=== PATIENT | female | born 1995 | race Caucasian/White ===

== ENCOUNTER 2022-08-21 16:33 | Emergency (ER) | payer OTHER, SELFPAY ==
[2022-08-21 16:34] VITALS: BP 145/81; PULSE 94; RESP 17; TEMP 37.1; O2SAT 97; BMI 36.6
[2022-08-21 16:50] VITALS: BP 145/81; PULSE 94; RESP 17; TEMP 37.1; O2SAT 97; BMI 36.6
--- NOTE | 2022-08-21 16:55 | XR_ITS ---
PROCEDURE INFORMATION: Exam: XR Chest Exam date and time: 08/21/2022 4:52 PM Age: 27 years old Clinical indication: Cough TECHNIQUE: Imaging protocol: Radiologic exam of the chest. Views: 2 views. COMPARISON: No relevant prior studies available. FINDINGS: Lungs: Flattening of the hemidiaphragms suggesting hyperinflation. Lungs are otherwise clear. Pleural spaces: Unremarkable. No pleural effusion. No pneumothorax. Heart/Mediastinum: Unremarkable. No cardiomegaly. Bones/joints: Unremarkable. IMPRESSION: Hyperinflation. No acute disease.
--- NOTE | 2022-08-21 17:03 | EXP.UTC ---
Discharge Plan Disposition Patient Disposition: Home, Self-Care Condition: Good Prescriptions Prescriptions: New benzonatate [benzonatate] 100 mg capsule 100 mg PO TIDP PRN (Reason: Cough) Qty: 30 0RF methylprednisolone 4 mg Tablets,Dose Pack 4 mg PO DIRECTED Qty: 21 0RF azithromycin [Zithromax] 250 mg tablet 250 mg PO UD DOSE PK Qty: 6 0RF Rx Instructions: Take two (2) tablets today, then one (1) tablet days #2 thru #5 No Action Vraylar 1.5 mg capsule 1.5 mg PO DAILY Qty: 30 1RF omeprazole 40 mg Capsule,Delayed Release(Dr/Ec) 40 mg PO DAILY fluticasone propion-salmeterol [Advair Diskus] 100-50 mcg/dose blister with device 1 inh inhalation BID albuterol sulfate [Ventolin HFA] 90 mcg/actuation HFA aerosol inhaler See Rx Instructions .ROUTE .COMPLEX Rx Instructions: INHALE 2 PUFFS BY MOUTH EVERY 4-6 HOURS NEEDED FOR SHORTNESS OF BREATH OR WHEEZING Referrals Follow up/Referrals: Dereje Finley MD [Primary Care Provider] - See instructions Activity Restrictions/Add. Instructions Additional Instructions/Restrictions: Drink plenty of fluids. Take tylenol or ibuprofen for pain or fever. Take the medications as directed. Follow up with your regular doctor. GO TO THE ER FOR ANY WORSENING SYMPTOMS Clinical Impressions Clinical Impression: Asthma exacerbation, Sinusitis Discharge ED Provider: Shabbir Jeffries [facility] General Stated complaint: cough Mode of Arrival: Ambulatory Source of Information: Patient Limitations: No Limitations Time Seen by Provider: 08/21/22 17:03 Description of Symptoms (Recalled from Triage Doc. by RN): PATIENT C/O INTERMITTEN PRODUCTIVE COUGH WITH CLOUDY, YELLOW/GREEN SPUTUM SINCE JUNE. SHE ALSO C/O TENDERNESS TO CHEST, MAINLY TO RIGHT SIDE. SHE REPORTS A HISTORY OF ASTHMA AND PNEUMONIA HEENT Symptoms (Recalled from RN notes): No Resp Symptoms (Recalled from RN notes): Yes Skin Symptoms (Recalled from RN notes): No MS Symptoms (Recalled from RN notes): No Functional Status (Recalled from RN notes): WNL History of Present Illness Provider Complaint: She states that she has had chest congestion over the past 3 months. She does have a history of asthma. She is not out of her albuterol inhaler or her advair. Related Data Home Medications Medication Instructions Recorded Confirmed albuterol sulfate 90 mcg/actuation See Rx Instructions .Route 08/21/22 08/21/22 aerosol inhaler (Ventolin HFA) .COMPLEX Asthma fluticasone 100 mcg-salmeterol 50 1 inh inhalation BID Asthma 08/21/22 08/21/22 mcg/dose blistr powdr for inhalation (Advair Diskus) omeprazole 40 mg capsule,delayed 40 mg PO DAILY Acid reflux 08/21/22 08/21/22 release Previous Rx's Medication Instructions Recorded cariprazine 1.5 mg capsule 1.5 mg PO DAILY #30 caps 01/16/22 (Vraylar) azithromycin 250 mg tablet 250 mg PO UD DOSE PK #6 tabs 08/21/22 (Zithromax) benzonatate 100 mg capsule 100 mg PO TIDP PRN Cough #30 caps 08/21/22 methylprednisolone 4 mg tablets in 4 mg PO DIRECTED #21 tabs 08/21/22 a dose pack Allergies Allergy/AdvReac Type Severity Reaction Status Date / Time No Known Allergies Allergy Verified 01/16/22 13:13 Worker's Comp Is this a Worker's Comp case?: No [facility] Disclaimer: The information contained in this section may have been updated after the patient was seen, as this information can be updated by other users. Social History Smoking Status: Current every day smoker alcohol intake: current current occupational status: unemployed Travel in the last 8 weeks: None ROS Obtained: Yes All systems reviewed & no additional complaints except as documented Constitutional Constitutional: Reports poor appetite Eyes Eyes: Reports system reviewed and no additional complaints, except as documented ENT Ears, Nose, Mouth, and Throat: Reports as per HPI C
[2022-08-21 17:25] VITALS: BP 145/81; PULSE 94; RESP 17; TEMP 37.1; O2SAT 97
== END 2022-08-21 17:27 | disposition home or self-care (01) ==
PROVIDERS: Emergency Provider Nurse Practitioner Family; PCP Emergency Medicine
DX: J45.901 Unspecified asthma with (acute) exacerbation (principal); J01.90 Acute sinusitis, unspecified; F17.200 Nicotine dependence, unspecified, uncomplicated
CPT/HCPCS: 71046; 99204; 99212; G0463

== ENCOUNTER 2022-11-20 00:44 | Emergency (ER) | payer OTHER, SELFPAY ==
[2022-11-20 00:54] VITALS: BP 167/94; PULSE 108; RESP 19; TEMP 37.4; O2SAT 97; BMI 36.6
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
[2022-11-20 01:45] VITALS: BP 139/100; PULSE 83; RESP 16; TEMP 37.2; O2SAT 95
== END 2022-11-20 01:46 | disposition home or self-care (01) ==
PROVIDERS: Emergency Provider Emergency Medicine; PCP Emergency Medicine
DX: H66.91 Otitis media, unspecified, right ear (principal); K64.9 Unspecified hemorrhoids; I10 Essential (primary) hypertension; F60.3 Borderline personality disorder; F31.9 Bipolar disorder, unspecified; J45.909 Unspecified asthma, uncomplicated; F41.9 Anxiety disorder, unspecified; G47.30 Sleep apnea, unspecified; R01.1 Cardiac murmur, unspecified; F17.200 Nicotine dependence, unspecified, uncomplicated
CPT/HCPCS: 99283

== ENCOUNTER 2022-11-24 18:00 | Emergency (ER) | payer OTHER, SELFPAY ==
--- NOTE | 2022-11-24 17:56 | ECG_ITS ---
APPROVED REPORT Exam: Resting ECG HR:100 bpm ECG Measurements Heart Rate 100 AXES NM 151 P 74 QRSd 107 QRS -53 QT 331 T 56 QTc 388 Conclusion SINUS TACHYCARDIA LEFT AXIS DEVIATION [QRS AXIS < -30] ABNORMAL ECG UNCONFIRMED REPORT Electronically signed by : Vipul Padron MD 11/26/2022 06:50:31
[2022-11-24 18:00] VITALS: BP 153/94; PULSE 105; RESP 18; TEMP 36.9; O2SAT 100; BMI 35.5
--- NOTE | 2022-11-24 18:13 | PC.NURSE ---
Dr. Barker at [facility] for pt eval
--- NOTE | 2022-11-24 18:18 | XR_ITS ---
PROCEDURE INFORMATION: Exam: XR Chest Exam date and time: 11/24/2022 6:27 PM Age: 27 years old Clinical indication: Shortness of breath; Additional info: Tachycardia, SOA TECHNIQUE: Imaging protocol: Radiologic exam of the chest. Views: 1 view. COMPARISON: CR XR CHEST 2V 08/21/2022 4:52 PM FINDINGS: Lungs: Unremarkable. No consolidation. Pleural spaces: Unremarkable. No pleural effusion. No pneumothorax. Heart/Mediastinum: Unremarkable. No cardiomegaly. Bones/joints: Unremarkable. IMPRESSION: No acute findings.
--- NOTE | 2022-11-24 18:22 | HMH.EDGENADL ---
Discharge Plan Disposition Patient Disposition: Home, Self-Care Chief Complaint: Anxiety Prescriptions Prescriptions: No Action Vraylar 1.5 mg capsule 1.5 mg PO DAILY Qty: 30 1RF omeprazole 40 mg Capsule,Delayed Release(Dr/Ec) 40 mg PO DAILY fluticasone propion-salmeterol [Advair Diskus] 100-50 mcg/dose blister with device 1 inh inhalation BID albuterol sulfate [Ventolin HFA] 90 mcg/actuation HFA aerosol inhaler See Rx Instructions .ROUTE .COMPLEX Rx Instructions: INHALE 2 PUFFS BY MOUTH EVERY 4-6 HOURS NEEDED FOR SHORTNESS OF BREATH OR WHEEZING benzonatate [benzonatate] 100 mg capsule 100 mg PO TIDP PRN (Reason: Cough) Qty: 30 0RF methylprednisolone 4 mg Tablets,Dose Pack 4 mg PO DIRECTED Qty: 21 0RF azithromycin [Zithromax] 250 mg tablet 250 mg PO UD DOSE PK Qty: 6 0RF Rx Instructions: Take two (2) tablets today, then one (1) tablet days #2 thru #5 amoxicillin-pot clavulanate 875-125 mg tablet 1 tab PO BID Qty: 20 0RF Referrals Follow up/Referrals: Provider,Referral, MD [Referring] - See instructions Activity Restrictions/Add. Instructions Additional Instructions/Restrictions: Call your family doctor to establish care for this visit to the emergency department and schedule follow-up within 48 hours to ensure improvement. If you have any worsening of your condition or any other concerning signs or symptoms, return to the emergency department or your primary care doctor for further evaluation. Be sure this call and schedule appointment that works in your schedule for psychiatry evaluation with mirna Hernandez as well. Clinical Impressions Clinical Impression: Panic attack as reaction to stress Discharge ED Provider: Prasanna Barker General Adult HPI General Chief complaint: Anxiety Stated complaint: chest pain Time Seen by Provider: 11/24/22 18:01 Mode of Arrival: Ambulatory Source of Information: Patient Limitations: No Limitations Description of Symptoms (Recalled from ER Triage Doc. by RN): Patient reports having a panic attack. States she woke up around 5pm with chest pain because she was having a panic attack. Patient explained to this nurse that her cousin yesterday and today is around the anniversary date of her dads and she feels it is just all adding up. History of Present Illness HPI narrative: Is a 27-year-old female with history of bipolar disorder, anxiety, panic, hemorrhoids not currently taking medications presenting with panic attack. Patient states that she had a close family member commit suicide 1 day prior to arrival on 11/23 by hanging. Since that time, patient had nightmares, woke up about an hour prior to arrival with tachycardia, breathing quickly, nausea and a feeling of panic. Denies chest pain, shortness of breath, abdominal pain, neurologic deficits, syncope, or any other concerns. On arrival to the emergency department, patient feeling much better, denies any of the symptoms, but is still panicked and sad. Denies SI/HI. Related Data Home Medications Medication Instructions Recorded Confirmed albuterol sulfate 90 mcg/actuation See Rx Instructions .Route 08/21/22 08/21/22 aerosol inhaler (Ventolin HFA) .COMPLEX Asthma fluticasone 100 mcg-salmeterol 50 1 inh inhalation BID Asthma 08/21/22 08/21/22 mcg/dose blistr powdr for inhalation (Advair Diskus) omeprazole 40 mg capsule,delayed 40 mg PO DAILY Acid reflux 08/21/22 08/21/22 release Previous Rx's Medication Instructions Recorded cariprazine 1.5 mg capsule 1.5 mg PO DAILY #30 caps 01/16/22 (Vraylar) azithromycin 250 mg tablet 250 mg PO UD DOSE PK #6 tabs 08/21/22 (Zithromax) benzonatate 100 mg capsule 100 mg PO TIDP PRN Cough #30 caps 08/21/22 methylprednisolone 4 mg tablets in 4 mg PO DIRECTED #21 tabs 08/21/22 a dose pack amoxicillin 875 mg-potassium 1 tab PO BID #20 tabs 11/20/22 clavulanate 125 mg tablet Allergies Allergy/AdvReac
[2022-11-24 18:31] VITALS: BP 126/87; PULSE 78; O2SAT 98
[2022-11-24 18:38] LABS: Anion Gap 14.8 mEq/L (5-15); Blood Urea Nitrogen 8 mg/dl (7-17); Calcium 9.3 mg/dl (8.4-10.2); Carbon Dioxide 25 mmol/L (22.0-30.0); Chloride 105 mmol/L (98-107); Creatinine Clearance Estimated 119 mL/min (50-200); Estimated Glomerular Filt Rate 59 ml/min (>60); GFR (African American) 71 ML/MIN (>60); Glucose 112 mg/dl (74-100); Potassium 3.8 mmoL/L (3.5-5.1); Sodium 141 mmol/L (136-145)
[2022-11-24 18:41] LABS: Basophils % 0.2 % (0.1-2.0); Eosinophils # 0.6 K/mm3 (0.0-0.4); Eosinophils % 6.1 % (0.1-12.0); Hematocrit 41.1 % (37.0-47.0); Hemoglobin 13.5 g/dL (12.2-16.2); Lymphocytes # 3.1 K/mm3 (0.7-4.5); Lymphocytes % 32.5 % (10-50); Mean Corpuscular HGB Conc 32.7 g/dL (31.8-35.4); Mean Corpuscular Hemoglobin 31.3 pg (27.0-31.2); Mean Corpuscular Volume 95.7 fl (81-99); Mean Platelet Volume 8.9 fl (7.4-10.4); Monocytes # 0.3 K/mm3 (0.1-1.0); Monocytes % 3.4 % (1.7-9.3); Neutrophils # 5.6 K/mm3 (1.8-7.8); Neutrophils % 57.8 % (37.0-80.0); Platelet Count 245 K/mm3 (142-424); White Blood Count 9.7 K/mm3 (4.8-10.8)
[2022-11-24 18:47] LABS: D-Dimer 0.54 ug/mL (0.0-0.5)
[2022-11-24 18:56] LABS: T4 (Thyroxine) 10.6 ug/dl (5.53-11.0)
[2022-11-24 19:02] VITALS: BP 116/61; PULSE 65; O2SAT 99
[2022-11-24 19:09] LABS: Thyroid Stimulating Hormone 2.27 uIU/mL (0.465-4.68)
[2022-11-24 20:27] VITALS: BP 114/75; PULSE 67; RESP 16; TEMP 36.9; O2SAT 99
== END 2022-11-24 20:28 | disposition home or self-care (01) ==
PROVIDERS: Emergency Provider Emergency Medicine; PCP Nurse Practitioner Family
DX: R07.9 Chest pain, unspecified (principal); F41.0 Panic disorder [episodic paroxysmal anxiety]; F31.9 Bipolar disorder, unspecified; F60.3 Borderline personality disorder; G47.30 Sleep apnea, unspecified; F17.200 Nicotine dependence, unspecified, uncomplicated
CPT/HCPCS: 71045; 80048; 84436; 84443; 85025; 85378; 93005; 96360; 99285

== ENCOUNTER → 2022-12-02 13:25 | Outpatient (CLI) | payer OTHER, SELFPAY ==
[2022-12-02 13:41] LABS: Basophils % 0.4 % (0.1-2.0); Eosinophils # 0.8 K/mm3 (0.0-0.4); Hematocrit 42.7 % (37.0-47.0); Hemoglobin 13.8 g/dL (12.2-16.2); Lymphocytes # 2.3 K/mm3 (0.7-4.5); Lymphocytes % 27.7 % (10-50); Mean Corpuscular HGB Conc 32.3 g/dL (31.8-35.4); Mean Corpuscular Hemoglobin 31.4 pg (27.0-31.2); Mean Corpuscular Volume 97.1 fl (81-99); Mean Platelet Volume 8.8 fl (7.4-10.4); Monocytes # 0.4 K/mm3 (0.1-1.0); Monocytes % 4.2 % (1.7-9.3); Neutrophils # 4.9 K/mm3 (1.8-7.8); Neutrophils % 58.8 % (37.0-80.0); Platelet Count 259 K/mm3 (142-424); Red Cell Distribution Width 13.1 % (11.5-17.5); White Blood Count 8.3 K/mm3 (4.8-10.8)
== END ==
PROVIDERS: PCP Internal Medicine Adolescent Medicine; Visit Provider Surgery
DX: K64.9 Unspecified hemorrhoids (principal)
CPT/HCPCS: 36415; 85025

== ENCOUNTER 2023-01-18 10:37 | Emergency (ER) | payer OTHER, SELFPAY ==
[2023-01-18 10:47] VITALS: BP 144/98; PULSE 88; RESP 15; TEMP 36.7; O2SAT 99; BMI 38.7
[2023-01-18 10:51] VITALS: BP 130/82
--- NOTE | 2023-01-18 11:11 | HMH.EDGENADL ---
Discharge Plan Disposition Patient Disposition: Home, Self-Care Prescriptions Prescriptions: New cetirizine 10 mg tablet 10 mg PO DAILY 30 Days Qty: 30 3RF Referrals Follow up/Referrals: Jaye Sargent APRN [Primary Care Provider] - See instructions Activity Restrictions/Add. Instructions Additional Instructions/Restrictions: History of hives or an urticarial rash which is since resolved suggest this is most likely allergic in nature. Please take cetirizine as prescribed return with any worsening of your symptoms and difficulty breathing swelling in your mouth or neck or any other concerns. I suggest you get allergy tested as well. Please follow-up the primary care doctor in 1 to 2 weeks. Clinical Impressions Clinical Impression: Urticaria Instructions Patient Instructions: DI for Skin Abscess Discharge ED Provider: Israel Champion General Adult HPI General Chief complaint: Skin/Abscess/Foreign Body Stated complaint: rash on body Time Seen by Provider: 01/18/23 10:54 Mode of Arrival: Ambulatory Source of Information: Patient Limitations: No Limitations Description of Symptoms (Recalled from ER Triage Doc. by RN): 27 yo F presents to ED with c/o hives ongoing since last wednesday. pt reports she was in longterm, then began to develop the hives. pt reports itching and burning. History of Present Illness HPI narrative: Patient is a 27-year-old female presenting with hives that presented last week that have since significantly improved. States they have been pruritic neuromas completely resolved at this point. She states she has known allergies to multiple substances and had allergy testing when she was a kid. Denies any shortness of breath any wheezing any bug bites that she is aware of etc. She is currently only having very mild symptoms. Related Data Previous Rx's Medication Instructions Recorded cetirizine 10 mg tablet 10 mg PO DAILY 30 days #30 tabs 01/18/23 Allergies Allergy/AdvReac Type Severity Reaction Status Date / Time No Known Allergies Allergy Verified 01/14/23 11:05 [facility] Disclaimer: The information contained in this section may have been updated after the patient was seen, as this information can be updated by other users. Medical History (Updated 01/18/23 @ 11:08 by Israel Champion MD) Abdominal wall dehiscence Borderline personality disorder Murmur Sleep apnea Surgical History History of History of laparoscopic cholecystectomy History of tubal ligation Social History Smoking Status: Current every day smoker alcohol intake: current current occupational status: unemployed Travel in the last 8 weeks: None ROS Obtained: Yes All systems reviewed & no additional complaints except as documented Physical Exam General General appearance: alert Respiratory Respiratory exam: Present normal lung sounds bilaterally Cardiovascular Cardiovascular exam: Present regular rate; Absent tachycardia Neurological Exam Neurological exam: Present alert and oriented X3 Skin Skin exam: Present other (Faint evidence of diffuse urticarial rash on her abdomen back lower legs no evidence of any wheezing or any other organ system involvement from a physical exam standpoint) Medical Decision Making Geovany Inquiry Pt receiving controlled substance: No Vital Signs: 01/18/23 10:47 01/18/23 10:51 Temperature 98.1 F Temperature Source Oral Pulse Rate [Left Radial] 88 Respiratory Rate 15 Blood Pressure 130/82 Blood Pressure [Right Arm] 144/98 H Blood Pressure Mean [Right Arm] 113 02 Sat by Pulse Oximetry 99 Oxygen Delivery Method Room Air Medical Decision Narrative: Very well-appearing 27-year-old female with significant improvement in what historically she claims were urticarial rashes she did have some pictures of these which seem consistent. S
[2023-01-18 11:15] VITALS: BP 144/98; PULSE 88; RESP 16; TEMP 36.7
== END 2023-01-18 11:15 | disposition home or self-care (01) ==
PROVIDERS: Emergency Provider Student in an Organized Health Care Education/Training Program; PCP Nurse Practitioner Family
DX: L50.9 Urticaria, unspecified (principal); F17.210 Nicotine dependence, cigarettes, uncomplicated; F41.9 Anxiety disorder, unspecified
CPT/HCPCS: 99282

== ENCOUNTER 2023-02-08 13:28 | Emergency (ER) | payer OTHER, SELFPAY ==
[2023-02-08 14:30] VITALS: BP 120/81; PULSE 85; RESP 17; TEMP 36.9; O2SAT 99; BMI 37.5
--- NOTE | 2023-02-08 14:37 | EXP.UTC ---
Discharge Plan Disposition Patient Disposition: Home, Self-Care Condition: Good Prescriptions Prescriptions: New methylprednisolone [Medrol (Antonio)] 4 mg tablets,dose pack See Rx Instructions .Route .COMPLEX 6 Days Qty: 21 0RF Rx Instructions: taper pack; amoxicillin-pot clavulanate 875-125 mg Tablet 1 tab PO Q12H Qty: 20 0RF guaifenesin [Mucinex] 600 mg tablet extended release 12hr 1,200 mg PO BID PRN (Reason: cough) Qty: 20 0RF No Action peg 3350-electrolytes [GaviLyte-G] 236-22.74-6.74 -5.86 gram recon soln 240 ml PO Q10M Qty: 4000 0RF Rx Instructions: until fecal effluent is clear-- follow mailed instructions cetirizine 10 mg tablet 10 mg PO DAILY 30 Days Qty: 30 3RF Referrals Follow up/Referrals: Jaye Sargent APRN [Primary Care Provider] - See instructions Activity Restrictions/Add. Instructions Additional Instructions/Restrictions: *Monitor Temp, Over the counter Motrin or Tylenol as directed/as needed Tylenol every 4 hours and Motrin every 6 hours (as long as your family doctor has told you that you can take it) for fever or pain. and straight to ER if unable to lower temp less than 101.0 after medication given *Warm salt water gargles may help to soothe the throat *Throat Lozenges? *Warm fluids like tea with honey may help to soothe the throat? *Sleep elevated *Humidifier/Vaporizer Your throat swab was sent for culture. Those results are typically sent to your primary care. Be sure to follow up in 2-3 days with your family doctor/primary care physician if no improvement so they can review those result and treat if necessary. If you don?t have a primary care doctor, I recommend you get one but in the mean time, you will have to return to a walk in clinic Follow up IMMEDIATELY for new or worsening symptoms or no Noticeable improvement over the next 48-72 hours. 911 for difficulty breathing or swallowing Clinical Impressions Clinical Impression: Sinusitis Qualifiers: Sinusitis location: unspecified location Chronicity: unspecified Qualified Code(s): J32.9 - Chronic sinusitis, unspecified Instructions Patient Instructions: Sinusitis, DI for Sinusitis Discharge ED Provider: Annetta Barahona [facility] [place] General Stated complaint: COUGH, SORE THROAT, CHILLS Time Seen by Provider: 02/08/23 14:37 History of Present Illness Provider Complaint: Patient states that she has been having cough, sore throat sinus congestion and pressure with drainage in the back of her throat and at times she is coughing up some mucous States that today she was feeling worse so she came in to get checked Related Data Previous Rx's Medication Instructions Recorded cetirizine 10 mg tablet 10 mg PO DAILY 30 days #30 tabs 01/18/23 peg 3350-electrolytes 236 240 ml PO Q10M #4,000 mL 02/02/23 gram-22.74 gram-6.74 gram-5.86 gram solution (GaviLyte-G) amoxicillin 875 mg-potassium 1 tab PO Q12H #20 tabs 02/08/23 clavulanate 125 mg tablet guaifenesin 600 mg tablet, 1,200 mg PO BID PRN cough #20 tabs 02/08/23 extended release 12 hr (Mucinex) methylprednisolone 4 mg tablets in See Rx Instructions .Route 02/08/23 a dose pack (Medrol (Antonio)) .COMPLEX 6 days #21 tabs Allergies Allergy/AdvReac Type Severity Reaction Status Date / Time No Known Allergies Allergy Verified 01/14/23 11:05 [facility] Disclaimer: The information contained in this section may have been updated after the patient was seen, as this information can be updated by other users. Medical History (Updated 02/08/23 @ 14:40 by Annetta Barahona, LAYO) Abdominal wall dehiscence Borderline personality disorder Murmur Sleep apnea Surgical History History of History of laparoscopic cholecystectomy History of tubal ligation Social History Smoking Status: [place]
[2023-02-08 14:42] VITALS: BP 120/81; PULSE 85; RESP 17; TEMP 36.9; O2SAT 99
[2023-02-08 14:50] LABS: UTC Influenza A Antigen Negative (Negative); UTC Influenza B Antigen Negative (Negative); UTC Strep Screen (Rapid) Negative (Negative)
== END 2023-02-08 15:33 | disposition home or self-care (01) ==
PROVIDERS: Emergency Provider Nurse Practitioner; PCP Nurse Practitioner Family
DX: J01.90 Acute sinusitis, unspecified (principal); F17.210 Nicotine dependence, cigarettes, uncomplicated
CPT/HCPCS: 87804; 87880; 99212; 99214; G0463

== ENCOUNTER 2023-03-11 11:35 | Day surgery (SDC) | payer OTHER, SELFPAY ==
[2023-03-11] VITALS (7 sets, daily range): BP systolic 96–123; BP diastolic 47–80; PULSE 78–89; RESP 16–19; TEMP 36.5–37.1; O2SAT 98–100; BMI 38.7
[2023-03-11 12:19] LABS: Urine Pregnancy, HCG Qual. Negative (Negative)
--- NOTE | 2023-03-11 13:13 | HMH.SCOPE ---
Procedure: Date: 03/11/23 Patient Date of :: 1995 Procedure Performed:: EGD & biopsies Indications:: GERD, Abdominal pain Performing Provider:: Janki Abrams MD Referring Provider:: Maday Abrams APRN Sedation:: Propofol Procedure:: The gastroscope was gently passed through the incisoral orifice into the oral cavity and under direct visualization the esophagus was intubated. The endoscope was passed down the esophagus, through the stomach, and into the duodenum. Color, texture, mucosa, and anatomy of the esophagus, stomach, and duodenum were carefully examined with the scope. Findings:: Oropharynx: normal Esophagus: normal EG Junction: intact at 40 cm Cardia: normal Fundus: normal Body: normal, random biopsies obtained Antrum: normal Duodenal bulb: normal Duodenum (second and third portion): normal Impression: Normal EGD, random biopsies obtained for evaluation of h.pylori Specimens:: Gastric Recommendations:: F/U with PCP prn Complications:: None Estimated blood obtained (mL): 0 Colonoscopy Component Colonoscopy Component Was a colonoscopy performed during today's procedure?: No
--- NOTE | 2023-03-11 13:20 | HMH.SCOPE ---
Procedure: Date: 03/11/23 Patient Date of :: 1995 Procedure Performed:: Colonoscopy & biopsies Indications:: Rectal bleeding Performing Provider:: Janki Abrams MD Referring Provider:: Maday Abrams APRN Sedation:: Propofol Procedure:: After placing the patient in the left lateral decubitus position, the colonoscopy was gently inserted into the rectum and under direct visualization advanced to the cecum which was identified by transillumination in the right lower quadrant, identification of the ileocecal valve, appendiceal orifice, and cecal strap. Color, texture, mucosa, and anatomy of the colon were carefully examined with the scope. Findings:: Anal canal: normal Rectum: normal, no outstanding hemorrhoids Sigmoid colon: patchy nonspecific mucosal erythema noted, biopsies obtained, no evidence of active bleeding Descending colon: normal without polyps or inflammatory changes Splenic flexure: normal Transverse colon: normal without polyps or inflammatory changes Hepatic flexure: normal Ascending colon: normal without polyps or inflammatory changes Cecum: normal Terminal ileum: not visualized Impression: Nonspecific patchy sigmoid colitis Specimens:: Sigmoid biopsies Recommendations:: F/U with referring provider Repeat colonoscopy at age 45 or when clinically indicated. Complications:: None Estimated blood obtained (mL): 0 Colonoscopy Component Colonoscopy Component Was a colonoscopy performed during today's procedure?: Yes Recommended follow up colonoscopy of at least 10 years?: Yes
--- NOTE | 2023-03-11 13:58 | P.PNANES_ITS ---
[facility] Disclaimer: The information contained in this section may have been updated after the patient was seen, as this information can be updated by other users. Medical History (Updated 03/11/23 @ 12:27 by Ken Ennis RN) Abdominal wall dehiscence Asthma Borderline personality disorder History of dehiscence of wound Murmur Sleep apnea Surgical History History of History of laparoscopic cholecystectomy History of tubal ligation Family History (Updated 03/11/23 @ 12:28 by Ken Ennis RN) Other Family history of heart disease Social History (Updated 03/11/23 @ 12:29 by Ken Ennis RN) Smoking Status: Current every day smoker alcohol intake: never substance use type: denies use current occupational status: unemployed Travel in the last 8 weeks: None [facility] Anesthesia Checklist Patient Identification Patient Identification: Verbal (Name & ) Structural Data Admitted From: Home Planned Operative Procedure/s: egd,colonoscopy Consent for Planned Operative Procedure(s) Verified: Yes Airway Assessment Mallampati Score:: Class II C-Spine Mobility Assessed: Yes TMJ Mobility Assessed: Yes Dentition: Good Dentition Neurological Assessment Level of Consciousness: Awake, Alert and Appropriate Anesthesia Plan Anesthesia Risk discussed: Yes Anesthesia Plan: Verified ASA Class: II Anesthesia Type: MAC
== END 2023-03-11 14:20 | disposition home or self-care (01) ==
PROVIDERS: PCP Nurse Practitioner Family; Visit Provider Internal Medicine Gastroenterology
PROC: 0DJ08ZZ Inspection of Upper Intestinal Tract, Via Natural or Artificial Opening Endoscopic (ICD-10-PCS; CPT 43235; principal; 2023-03-11 13:00)
DX: K21.9 Gastro-esophageal reflux disease without esophagitis (principal); K31.9 Disease of stomach and duodenum, unspecified; K62.5 Hemorrhage of anus and rectum; K52.89 Other specified noninfective gastroenteritis and colitis
CPT/HCPCS: 43239; 45378; 81025

== ENCOUNTER 2023-06-15 15:06 | Outpatient (CLI) | payer OTHER, SELFPAY ==
--- NOTE | 2023-06-15 15:12 | XR_ITS ---
FINAL REPORT CLINICAL HISTORY: INJURY OF LT SHOULDER COMPARISON: None FINDINGS: LEFT SHOULDER: 3 views of the left shoulder were obtained. There is no acute fracture or dislocation. The joint spaces are intact. There is no soft tissue abnormality. IMPRESSION: No acute fracture Reviewed, Interpreted and Dictated by Miguel Angel Duff III, MD Transcribed by Nnacy Estrada Authenticated and [facility]
--- NOTE | 2023-06-15 15:12 | XR_ITS ---
FINAL REPORT CLINICAL HISTORY: INJURY OF LEFT SHOULDER COMPARISON: None FINDINGS: 2 views of the left clavicle were obtained. There is no acute fracture. There is mild elevation and widening of the distal left clavicle worrisome for mild AC separation. There is no soft tissue abnormality. IMPRESSION: Findings worrisome for mild AC separation. Reviewed, Interpreted and Dictated by Miguel Angel Duff III, MD Transcribed by Nancy Estrada Authenticated and [facility]
== END 2023-06-15 23:59 ==
LOC: RAD 15:07
PROVIDERS: PCP Nurse Practitioner Family; Visit Provider Physician Assistant
DX: S49.92XA Unspecified injury of left shoulder and upper arm, initial encounter (principal)
CPT/HCPCS: 73000; 73030

== ENCOUNTER 2023-07-13 06:13 | Emergency (ER) | payer OTHER, SELFPAY ==
[2023-07-13 06:15] VITALS: BP 135/92; PULSE 102; RESP 22; TEMP 38.3; O2SAT 98; BMI 35.5
--- NOTE | 2023-07-13 06:37 | PC.NURSE ---
swabs sent to lab.
--- NOTE | 2023-07-13 06:38 | HMH.EDGENADL ---
Discharge Plan Disposition Patient Disposition: Home, Self-Care Prescriptions Prescriptions: New ondansetron 4 mg tablet,disintegrating 4 mg PO TID PRN (Reason: nausea and vomiting) 5 Days Qty: 12 0RF oseltamivir [Tamiflu] 75 mg capsule 75 mg PO BID 5 Days Qty: 10 0RF Referrals Follow up/Referrals: Jaye Sargent APRN [Primary Care Provider] - See instructions Activity Restrictions/Add. Instructions Additional Instructions/Restrictions: You were evaluated in the ER. You are appropriate for discharge at this time. Take the prescribed ondansetron as directed if needed for nausea or vomiting. Drink plenty of fluids. Take Tylenol and ibuprofen if needed for fever or bodyaches, do not exceed the recommended doses on the bottles. Make an appointment with your primary care physician for reevaluation in 2 to 3 days. Return to the ER with new, worsening, or otherwise concerning symptoms. Clinical Impressions Clinical Impression: Myalgia, Cough, Fever Discharge ED Provider: Prasanna Barker General Adult HPI <Nicole Kraft MD - Last Filed: 07/13/23 06:52> General Chief complaint: Nausea/Vomiting/Diarrhea Stated complaint: Cough, vomiting, chills Time Seen by Provider: 07/13/23 06:32 Mode of Arrival: Ambulatory Source of Information: Patient Limitations: No Limitations Description of Symptoms (Recalled from ER Triage Doc. by RN): Pt presents with vomiting,sore throat, fever, and overall body weakness for 2 days. Uses Albuterol and Advair inhaler at home. History of Present Illness HPI narrative: 28-year-old female with history of asthma presents to the ER with concerns of vomiting, sore throat, cough, fever, body aches for 2 days. Patient states she attempted taking Tylenol yesterday but afterwards had emesis. She has not taken any medication since that time. She states she has difficulty keeping down food or drink. She denies abdominal pain, diarrhea, or dysuria. Patient states all of her muscles and body aches. She has not taken any other home medications to control her symptoms. Patient has history of tube removal. Most recent period was 1 week ago. Related Data Previous Rx's Medication Instructions Recorded ondansetron 4 mg disintegrating 4 mg PO TID PRN nausea and 07/13/23 tablet vomiting 5 days #12 tabs oseltamivir 75 mg capsule (Tamiflu) 75 mg PO BID 5 days #10 caps 07/13/23 Allergies Allergy/AdvReac Type Severity Reaction Status Date / Time No Known Allergies Allergy Verified 03/11/23 12:29 PFS <Nicole Kraft MD - Last Filed: 07/13/23 06:52> [facility] Disclaimer: The information contained in this section may have been updated after the patient was seen, as this information can be updated by other users. Medical History (Updated 07/13/23 @ 06:48 by Nicole Kraft MD) History of dehiscence of wound Asthma Abdominal wall dehiscence Murmur Sleep apnea Borderline personality disorder Surgical History History of History of laparoscopic cholecystectomy History of tubal ligation Family History (Updated 03/11/23 @ 12:28 by Ken Ennis RN) Other Family history of heart disease Social History (Updated 03/11/23 @ 13:59 by Danielito Patel CRNA) Smoking Status: Current every day smoker alcohol intake: never substance use type: denies use current occupational status: unemployed Travel in the last 8 weeks: None <Nicole Kraft MD - Last Filed: 07/13/23 06:52> ROS Obtained: Yes All systems reviewed & no additional complaints except as documented Constitutional Constitutional: Reports body ache, Denies chills, Reports fever(s), Denies headache(s) and Reports weakness (Generalized) Eyes Eyes: Denies change in vision ENT Ears, Nose, Mouth, and Throat: Denies dizziness, Denies headache(s), Denies nasal congestion and Denies sore throat Cardiovascular Cardiovascular: Denies chest pain, Denies dyspnea and Denies leg edema Respiratory Respiratory: Reports cough and Denies dyspnea Gastrointestinal Gastrointestingal: Reports nausea and vomiting; Denies constipation or diarrhea Genitourinary Female Genitourinary: Denies dysuria Musculoskeletal Musculoskeletal: Denies arthralgias, Denies myalgias, Denies numbness and Denies tingling Integumentary/Breasts Skin/Breast: Denies change in pigmentation Neurologic Neurologic: Denies dizziness, Denies headache(s), Denies numbness, Denies tingling and Reports weakness (Generalized) Physical Exam <Nicole Kraft MD - Last Filed: 07/13/23 06:52> General General appearance: alert and in no apparent distress Head Head exam: atraumatic and normocephalic Eye Eye exam: Present PERRL and EOMI ENT ENT exam: Present mucous membranes moist and other (Mild posterior oropharyngeal erythema, no tonsillomegaly, no lymphadenopathy, no exudates) Neck Neck exam: Present normal inspection and full ROM Chest Chest inspection: Present symmetric chest wall rise Respiratory Respiratory exam: Present normal lung sounds bilaterally and other (Good air movement throughout); Absent respiratory distress, wheezes or stridor Cardiovascular Cardiovascular exam: Present regular rate and normal rhythm Abdominal Exam Abdominal exam: Present soft; Absent distention or tenderness Extremities Exam Extremities exam: Present full ROM Back Exam Back exam: Absent CVA tenderness (R) or CVA tenderness (L) Neurological Exam Neurological exam: Present alert and oriented X3; Absent motor sensory deficit Psychiatric Psychiatric exam: Present normal affect and normal mood Skin Skin exam: Present warm and dry Medical Decision Making <Nicole Kraft MD - Last Filed: 07/13/23 06:52> Geovany Inquiry Pt receiving controlled substance: No Vital Signs: 07/13/23 06:15 07/13/23 07:00 Temperature 101 F H Temperature Source Oral Pulse Rate 88 Pulse Rate [Left] 102 H Respiratory Rate 22 16 Blood Pressure 119/65 Blood Pressure [Right Arm] 135/92 H Blood Pressure Mean 83 Blood Pressure Mean [Right Arm] 106 Blood Pressure Source [Right Arm] Automatic Cuff Blood Pressure Position [Right Arm] Sitting 02 Sat by Pulse Oximetry 98 98 Oxygen Delivery Method Room Air Room Air Lab Data Lab Results 07/13/23 06:36: SARS-CoV-2 (PCR) Not detected, Influenza A Untype (PCR) Detected A, Influenza Type B (PCR) Not detected Orders (Tests/Meds): ED MEDICATIONS Discontinued Medications Generic Name Dose Route Start Last Admin Trade Name Freq PRN Reason Stop Dose Admin Acetaminophen 1,000 mg 07/13/23 06:38 07/13/23 06:42 Acetaminophen 500mg Tab PO 07/13/23 06:39 1,000 mg ONCE ONE Administration Ibuprofen 600 mg 07/13/23 06:38 07/13/23 06:42 Ibuprofen 600 Mg Tablet PO 07/13/23 06:39 600 mg ONCE ONE Administration Ondansetron HCl 4 mg 07/13/23 06:38 07/13/23 06:43 Ondansetron 4mg Odt SL 07/13/23 06:39 4 mg ONCE ONE Administration ORDERS Category Date Time Status Rapid PCR Covid and Flu A/B Stat Lab 07/13/23 06:36 Completed Medical Decision Narrative: In summary, this 28year old female presents to the emergency department today with generalized bodyaches, fever, cough, congestion, sore throat, emesis. On initial evaluation patient is hemodynamically stable, febrile with temperature 101, nonacute abdominal exam, cardiopulmonary exam reassuring. Tachycardia that was present on triage vitals is absent on my exam. Patient appears well-hydrated. Differential diagnosis includes but is not limited to viral syndrome including but not limited to COVID, influenza, other virus, I considered urinary tract infection but patient has no dysuria or hematuria, I considered electrolyte abnormality and dehydration but patient has not had significant volume losses and I have much lower suspicion for this based on physical exam, I considered asthma exacerbation but patient has clear lungs bilaterally. Based on these concerns, I ordered viral testing. Patient received Tylenol, ibuprofen, Zofran for treatment. I prescribed Zofran for outpatient management of symptoms. Viral swab pending at the time of physician handoff. Patient handed off to Dr. Barker for continued management and disposition. <Prasanna Barker MD - Last Filed: 07/13/23 07:55> Vital Signs: 07/13/23 06:15 07/13/23 07:00 Temperature 101 F H Temperature Source Oral Pulse Rate 88 Pulse Rate [Left] 102 H Respiratory Rate 22 16 Blood Pressure 119/65 Blood Pressure [Right Arm] 135/92 H Blood Pressure Mean 83 Blood Pressure Mean [Right Arm] 106 Blood Pressure Source [Right Arm] Automatic Cuff Blood Pressure Position [Right Arm] Sitting 02 Sat by Pulse Oximetry 98 98 Oxygen Delivery Method Room Air Room Air Lab Data Lab Results 07/13/23 06:36: SARS-CoV-2 (PCR) Not detected, Influenza A Untype (PCR) Detected A, Influenza Type B (PCR) Not detected Orders (Tests/Meds): ED MEDICATIONS Discontinued Medications Generic Name Dose Route Start Last Admin Trade Name Freq PRN Reason Stop Dose Admin Acetaminophen 1,000 mg 07/13/23 06:38 07/13/23 06:42 Acetaminophen 500mg Tab PO 07/13/23 06:39 1,000 mg ONCE ONE Administration Ibuprofen 600 mg 07/13/23 06:38 07/13/23 06:42 Ibuprofen 600 Mg Tablet PO 07/13/23 06:39 600 mg ONCE ONE Administration Ondansetron HCl 4 mg 07/13/23 06:38 07/13/23 06:43 Ondansetron 4mg Odt SL 07/13/23 06:39 4 mg ONCE ONE Administration ORDERS Category Date Time Status Rapid PCR Covid and Flu A/B Stat Lab 07/13/23 06:36 Completed Medical Decision Narrative: In summary, this 28year old female presents to the emergency department today with generalized bodyaches, fever, cough, congestion, sore throat, emesis. On initial evaluation patient is hemodynamically stable, febrile with temperature 101, nonacute abdominal exam, cardiopulmonary exam reassuring. Tachycardia that was present on triage vitals is absent on my exam. Patient appears well-hydrated. Differential diagnosis includes but is not limited to viral syndrome including but not limited to COVID, influenza, other virus, I considered urinary tract infection but patient has no dysuria or hematuria, I considered electrolyte abnormality and dehydration but patient has not had significant volume losses and I have much lower suspicion for this based on physical exam, I considered asthma exacerbation but patient has clear lungs bilaterally. Based on these concerns, I ordered viral testing. Patient received Tylenol, ibuprofen, Zofran for treatment. I prescribed Zofran for outpatient management of symptoms. Viral swab pending at the time of physician handoff. Patient handed off to Dr. Barker for continued management and disposition. Mj: I assumed primary responsibility for this patient after signout from previous physician. Patient tolerating p.o. intake, evaluation. Swab positive for influenza A. Antiflu medication sent to pharmacy, per request. Because patient at baseline without signs or symptoms of clinical decompensation, deemed appropriate for discharge. Results were relayed to patient who voiced understanding and were agreeable to outpatient management and follow up. I discussed my clinical impression with patient and answered all questions. At this time, the evidence for any other entities in the differential is insufficient to warrant any further testing or ED observation. This was explained as well. Advisory was given that persistent or worsening symptoms require further evaluation. I confirmed the understanding of this discussion. Critical Care <Nicole Kraft MD - Last Filed: 07/13/23 06:52> Critical Care Time Critical Care Time: No
[2023-07-13] MEDS: ACETAMINOPHEN 500MG TAB 1000 MG PO (06:42)
[2023-07-13] MEDS: IBUPROFEN 600 MG TABLET PO (06:42)
[2023-07-13] MEDS: ONDANSETRON 4MG ODT 4 MG SL (06:43)
[2023-07-13 06:56] LABS: Coronavirus 19, PCR Not Detected (NotDetected); Influenza B, PCR Not Detected (NotDetected)
[2023-07-13 07:00] VITALS: BP 119/65; PULSE 88; RESP 16; O2SAT 98
--- NOTE | 2023-07-13 07:44 | PC.NURSE ---
Pt able to complete PO challenge
[2023-07-13 07:45] LABS: Influenza A, PCR Detected (NotDetected)
[2023-07-13 08:00] VITALS: BP 119/65; PULSE 88; RESP 16; TEMP 38.3; O2SAT 98
== END 2023-07-13 08:01 | disposition home or self-care (01) ==
PROVIDERS: Emergency Medicine; Emergency Provider Emergency Medicine; PCP Nurse Practitioner Family
DX: J10.1 Influenza due to other identified influenza virus with other respiratory manifestations (principal); R50.9 Fever, unspecified; R11.2 Nausea with vomiting, unspecified; R05.9 Cough, unspecified; M79.18 Myalgia, other site; F17.210 Nicotine dependence, cigarettes, uncomplicated
CPT/HCPCS: 87636; 99283

== ENCOUNTER 2023-10-05 22:53 | Emergency (ER) | payer SELFPAY ==
[2023-10-05 22:55] VITALS: BP 168/111; PULSE 122; RESP 22; TEMP 36.8; O2SAT 98; BMI 32.3
[2023-10-05] MEDS: AMOXICILLIN/CLAVULANATE POTASSIUM 875/125MG TABLET 1 EACH PO (23:11)
--- NOTE | 2023-10-05 23:12 | ED_ITS ---
Discharge Plan Disposition Patient Disposition: Home, Self-Care Condition: Good Prescriptions Prescriptions: New amoxicillin-pot clavulanate 875-125 mg tablet 1 tab PO BID 7 Days Qty: 14 0RF No Action ondansetron 4 mg tablet,disintegrating 4 mg PO TID PRN (Reason: nausea and vomiting) 5 Days Qty: 12 0RF oseltamivir [Tamiflu] 75 mg capsule 75 mg PO BID 5 Days Qty: 10 0RF Referrals Follow up/Referrals: Jaye Sargent APRN [Primary Care Provider] - See instructions Activity Restrictions/Add. Instructions Additional Instructions/Restrictions: Please take antibiotics as prescribed. Please take Tylenol and ibuprofen as needed for pain. Please follow-up with a dentist as soon as possible. Clinical Impressions Clinical Impression: Dental infection Discharge ED Provider: Israel Champion General Adult HPI General Chief complaint: Dental/Oral Stated complaint: Dizziness,Nausea,pain right side face Time Seen by Provider: 10/05/23 23:00 Mode of Arrival: Ambulatory Source of Information: Patient Limitations: No Limitations Description of Symptoms (Recalled from ER Triage Doc. by RN): Patient reports toothache upper right for 3-4 days. Reports Nausea, fever, and ear pain on upper right side. History of Present Illness HPI narrative: 28-year-old female with reported history of psychiatric comorbidities presents with right mandibular posterior most tooth pain. She reports tooth fractured f or about a year but over the last few days has started to cause her significant pain. She reports the pain radiates to the right ear. She reports some subjective fever at home. She reports that she has seen a dentist before but has been unable to get it taken care of so far. Related Data Previous Rx's Medication Instructions Recorded ondansetron 4 mg disintegrating 4 mg PO TID PRN nausea and 07/13/23 tablet vomiting 5 days #12 tabs oseltamivir 75 mg capsule (Tamiflu) 75 mg PO BID 5 days #10 caps 07/13/23 amoxicillin 875 mg-potassium 1 tab PO BID 7 days #14 tabs 10/05/23 clavulanate 125 mg tablet Allergies Allergy/AdvReac Type Severity Reaction Status Date / Time No Known Allergies Allergy Verified 03/11/23 12:29 [facility] Disclaimer: The information contained in this section may have been updated after the patient was seen, as this information can be updated by other users. Medical History (Updated 10/05/23 @ 23:12 by Peña Mc MD) History of dehiscence of wound Asthma Abdominal wall dehiscence Murmur Sleep apnea Borderline personality disorder Surgical History History of History of laparoscopic cholecystectomy History of tubal ligation Family History (Updated 03/11/23 @ 12:28 by Ken Ennis RN) Other Family history of heart disease Social History (Updated 03/11/23 @ 13:59 by Danielito Patel CRNA) Smoking Status: Current every day smoker alcohol intake: never substance use type: denies use current occupational status: unemployed Travel in the last 8 weeks: None ROS Obtained: Yes All systems reviewed & no additional complaints except as documented Physical Exam General General appearance: alert and anxious Head Head exam: atraumatic and normocephalic Eye Eye exam: Present normal appearance, PERRL and EOMI ENT ENT exam: Present TM's normal bilaterally, normal external ear exam and other (Fractured posterior most right mandibular molar, no palpable abscess, no submandibular swelling) Neck Neck exam: Present normal inspection and full ROM Chest Chest inspection: Present normal inspection and symmetric chest wall rise; Absent tenderness Respiratory Respiratory exam: Present normal lung sounds bilaterally; Absent respiratory distress Cardiovascular Cardiovascular exam: Present regular rate and normal rhythm Abdominal Exam Abdominal exam: Present soft; Absent distention, tenderness or guarding Extremities Exam Extremities exam: Present normal inspection; Absent edema or joint swelling Back Exam Back exam: Present normal inspection; Absent tenderness Neurological Exam Neurological exam: Present alert and oriented X3; Absent motor sensory deficit Psychiatric Psychiatric exam: Present normal affect and normal mood Skin Skin exam: Present warm, dry and normal color Lymphatic Lymphatic Findings: no adenopathy Medical Decision Making Medical Records Medical records reviewed: Yes I reviewed the patient's medical records. Geovany Inquiry Pt receiving controlled substance: No Geovany was queried for this patient: No Vital Signs: 10/05/23 22:55 10/05/23 23:20 Temperature 98.2 F 98.7 F Temperature Source Oral Oral Pulse Rate 74 Pulse Rate [Right Radial] 122 H Respiratory Rate 22 20 Blood Pressure 148/95 H Blood Pressure [Right Arm] 168/111 H Blood Pressure Mean [Right Arm] 130 Blood Pressure Source Automatic Cuff Blood Pressure Source [Right Arm] Automatic Cuff Blood Pressure Position Sitting Blood Pressure Position [Right Arm] Sitting 02 Sat by Pulse Oximetry 98 Oxygen Delivery Method Room Air Room Air Lab Data Lab results reviewed: Yes I reviewed the patient's lab results. Orders (Tests/Meds): ED MEDICATIONS Discontinued Medications Generic Name Dose Route Start Last Admin Trade Name Sofía PRN Reason Stop Dose Admin Amoxicillin/Clavulanate Potassium 1 each 10/05/23 23:09 10/05/23 23:11 Amoxicillin/Clavulanate Potassium 875/125mg Tablet PO 10/05/23 23:10 1 each ONCE ONE Administration Medical Decision Narrative: 28-year-old female presents with a few days of left mandibular tooth pain radiating to the ear. Differential diagnose includes but limited to pulpitis, dental fracture, abscess, Lucho's angina etc. Exam is consistent with fractu red tooth without deep space infection. Patient was given dose of Augmentin in ED and discharged with prescription for same. She was given a dental block with resolution and pain prior to discharge. She was encouraged to follow-up with a dentist as soon as possible. Procedures Risk/Benefits of Procedure(s) Were Explained: Yes Nerve Block Nerve Block 1: Local Anesthetic: lidocaine 1% and with epi Amount of anesthesia used (mL): 5 Side: Right Intraoral Nerve Block: inferior alveolar Procedure Successful: Yes Patient Tolerated Procedure: well and no complications Complications: none Critical Care Critical Care Time Critical Care Time: No
[2023-10-05 23:20] VITALS: BP 148/95; PULSE 74; RESP 20; TEMP 37.1; O2SAT 97
== END 2023-10-05 23:21 | disposition home or self-care (01) ==
PROVIDERS: Emergency Provider Student in an Organized Health Care Education/Training Program; PCP Nurse Practitioner Family
DX: K02.9 Dental caries, unspecified (principal); F17.210 Nicotine dependence, cigarettes, uncomplicated
CPT/HCPCS: 99283